=== PATIENT | male | born 1935 | race Caucasian/White ===

== ENCOUNTER 2016-11-23 07:49 | Day surgery (SDC) | payer OTHER ==
--- NOTE | ~2016-11-23 | EGD ---
EGD REPORT [facility] [address] 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 - A History and Physical has been performed. Patient meds and allergies have been reviewed. The risks and benefits of the procedure and the sedation options and risks were discussed with the patient. All questions were answered and informed consent was obtained. Patient identification and proposed procedure were verified prior to the procedure by the physician and the nurse in the procedure room. Mental Status Examination: alert and oriented. Respiratory Examination: expiratory wheezes. CV Examination: normal and RRR, no murmurs, no S3 or S4. ASA Grade Assessment: IV - A patient with severe systemic disease that is a constant threat to life. After reviewing the risks and benefits, the patient was deemed in satisfactory condition to undergo the procedure. The anesthesia plan was to use general anesthesia. Immediately prior to administration of medications, the patient was re-assessed for adequacy to receive sedatives. The heart rate, respiratory rate, oxygen saturations, blood pressure, adequacy of pulmonary ventilation, and response to care were monitored throughout the procedure. The physical status of the patient was re-assessed after the procedure. After obtaining informed consent, the Bronchoscope was introduced through the mouth, via the endotracheal tube (the patient was intubated for the procedure) and advanced to the tracheobronchial tree. the BF [id number] was introduced through the mouth, via the endotracheal tube (the patient was intubated for the procedure) and advanced to the tracheobronchial tree. EGD REPORT [address] [address] NAME: ROBER MCCONNELL : [birth year] STATUS : REG [facility] PAT#: [id number] AGE: 81 ADM/REG DATE : 11/23/16 MR#: [id number] REPORT SERV DATE: 11/23/16 DICTATED BY: BENITO GOODE DATE: 11/23/16 REPORT STATUS : Draft TRANSCRIBED BY: [employer] DATE: 11/23/16 The procedure was accomplished without difficulty. The patient tolerated the procedure well. Findings: The endotracheal tube is in good position. The visualized portion of the trachea is of normal caliber. The jose alberto is sharp. The tracheobronchial tree was examined to at least the first subsegmental level. A large friable irregular polypoid tumor is emanating out of the RUL with complete occlusion of the CHICO. Brushings were obtained in the right mainstem bronchus of the lung and sent for routine cytology. One sample was obtained. Endobronchial biopsies were performed in the right mainstem bronchus of the lung using a forceps and sent for histopathology examination. Five samples were obtained. Balloon bronchoplasty with a des number four was utilized to identify the margins. No significant benefit was acheived with the des balloon. The FiO2 was lowered to less than 40% and Nd Yap laser therapy (330 mJ, 1.7 Hz) was applied for destruction of tumor (see pictures). The patient was then reintubated with a 12 mm Rigid Dumon bronchoscope in the usual atraumatic fashion and selectively advanced into the proximal right mainstem. Using the barrel of the rigid bronchoscope, CHICO tumor was cored out and sent for histology. An attempt at CHICO stent placement was aborted due to poor fit. The patient was then reintubated and argon plasma coagulation therapy (0.8 L/min, 15 Pack was applied to the remaining tumor for destruction of tumor and hemostasis. Pictures were taken at the close of the case. 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 Using the barrel of the rigid bronchoscope, CHICO tumor was cored out. No stent was placed. Recommendation: - Await test results. - PET scan. - MRI of the head with and without contrast - Medical oncology consult with Dr. Noland - Radiation oncology consult with Dr. Coughlin - Nurse Navigator consult with Cecelia Tong - Full PFTs - Requested Keytruda PDL1 testin - Biodesix Liquid biopsy - Reflex testing for adenocarcinoma if indicated. Attending Participation: I personally performed the entire procedure. KERWIN GOODE MD 11/23/2016 1:00 PM This report has been signed electronically. EGD REPORT [facility] [address] [address] NAME: ROBER MCCONNELL : 33 STATUS : REG [facility]#: [id number] AGE: 81 ADM/REG DATE : 11/23/16 MR#: [id number] REPORT SERV DATE: 11/23/16 DICTATED BY: BENITO GOODE DATE: 11/23/16 REPORT STATUS : Draft TRANSCRIBED BY: [employer] DATE: 11/23/16 Number of Addenda: 0 Note Initiated On: 11/23/2016 8:15 AM [address] [facility] [place] [address]
--- NOTE | ~2016-11-23 | EGD ---
EGD REPORT [facility] [address] 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 - A History and Physical has been performed. Patient meds and allergies have been reviewed. The risks and benefits of the procedure and the sedation options and risks were discussed with the patient. All questions were answered and informed consent was obtained. Patient identification and proposed procedure were verified prior to the procedure by the physician and the nurse in the procedure room. Mental Status Examination: alert and oriented. Respiratory Examination: expiratory wheezes. CV Examination: normal and RRR, no murmurs, no S3 or S4. ASA Grade Assessment: IV - A patient with severe systemic disease that is a constant threat to life. After reviewing the risks and benefits, the patient was deemed in satisfactory condition to undergo the procedure. The anesthesia plan was to use general anesthesia. Immediately prior to administration of medications, the patient was re-assessed for adequacy to receive sedatives. The heart rate, respiratory rate, oxygen saturations, blood pressure, adequacy of pulmonary ventilation, and response to care were monitored throughout the procedure. The physical status of the patient was re-assessed after the procedure. After obtaining informed consent, the Bronchoscope was introduced through the mouth, via the endotracheal tube (the patient was intubated for the procedure) and advanced to the tracheobronchial tree. the BF [id number] was introduced through the mouth, via the endotracheal tube (the patient was intubated for the procedure) and advanced to the tracheobronchial tree. EGD REPORT [address] [address] NAME: ROBER MCCONNELL : [birth year] STATUS : [facility] PAT#: [id number] AGE: 81 ADM/REG DATE : 11/23/16 MR#: [id number] REPORT SERV DATE: 12/22/16 DICTATED BY: BENITO GOODE DATE: 12/22/16 REPORT STATUS : Draft TRANSCRIBED BY: [employer] DATE: 12/22/16 The procedure was accomplished without difficulty. The patient tolerated the procedure well. Findings: The endotracheal tube is in good position. The visualized portion of the trachea is of normal caliber. The jose alberto is sharp. The tracheobronchial tree was examined to at least the first subsegmental level. A large friable irregular polypoid tumor is emanating out of the RUL with complete occlusion of the CHICO. Brushings were obtained in the right mainstem bronchus of the lung and sent for routine cytology. One sample was obtained. Endobronchial biopsies were performed in the right mainstem bronchus of the lung using a forceps and sent for histopathology examination. Five samples were obtained. Balloon bronchoplasty with a des number four was utilized to identify the margins. No significant benefit was acheived with the des balloon. The FiO2 was lowered to less than 40% and Nd Yap laser therapy (330 mJ, 1.7 Hz) was applied for destruction of tumor (see pictures). The patient was then reintubated with a 12 mm Rigid Dumon bronchoscope in the usual atraumatic fashion and selectively advanced into the proximal right mainstem. Using the barrel of the rigid bronchoscope, CHICO tumor was cored out and sent for histology. An attempt at CHICO stent placement was aborted due to poor fit. The patient was then reintubated and argon plasma coagulation therapy (0.8 L/min, 15 Pack was applied to the remaining tumor for destruction of tumor and hemostasis. Pictures were taken at the close of the case. 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 Using the barrel of the rigid bronchoscope, CHICO tumor was cored out. No stent was placed. Recommendation: - Await test results. - PET scan. - MRI of the head with and without contrast - Medical oncology consult with Dr. Noland - Radiation oncology consult with Dr. Coughlin - Nurse Navigator consult with Cecelia Tong - Full PFTs - Requested Keytruda PDL1 testin - Biodesix Liquid biopsy - Reflex testing for adenocarcinoma if indicated. Attending Participation: I personally performed the entire procedure. KERWIN GOODE MD 11/23/2016 1:00 PM This report has been signed electronically. EGD REPORT [address] [address] NAME: ROBER MCCONNELL : 33 STATUS : [facility]#: [id number] AGE: 81 ADM/REG DATE : 11/23/16 MR#: [id number] REPORT SERV DATE: 12/22/16 DICTATED BY: BENITO GOODE DATE: 12/22/16 REPORT STATUS : Draft TRANSCRIBED BY: [employer] DATE: 12/22/16 Number of Addenda: 1 Note Initiated On: 11/23/2016 8:15 AM Addendum Number: 1 Addendum Date: 12/22/2016 5:26 PM EBUS TBNA of lymph node level 11L for cytology EBUS TBNA of lymph node level 7 for cytology EBUS TBNA of lymph node level 4R for cytology KERWIN GOODE MD 12/22/2016 5:26 PM This report has been signed electronically. [address] [place] [address]
--- NOTE | ~2016-11-23 | CN ---
Consultation Report [facility] [address] [place]. [address] NAME: ROBER MCCONNELL : 33 STATUS : REG [facility]#: [id number] AGE: 81 ADM/REG DATE : 11/23/16 MR#: [id number] REPORT SERV DATE: 11/23/16 DICTATED BY: TONA GOODE DATE: 11/23/16 REPORT STATUS : Draft TRANSCRIBED BY: [employer] DATE: 11/23/16 CONSULTATION DATE OF CONSULTATION: Dear Dr. Maggie Headley and Dr. Salas: Thank you for requesting my opinion regarding evaluation and management of Mr. Rober Mcconnell' right-sided lung mass with bulky mediastinal adenopathy and right mainstem subtotal obstruction. Mr. Mcconnell is a pleasant 81-year-old gentleman with a significant past medical history of remote tobacco abuse, prostate cancer, status post XRT, who presents to [facility] for formal evaluation of worsening shortness of breath and abnormal CT scan of the chest. Mr. Mcconnell' history is somewhat limited by his dementia, he is slightly forgetful. He does state that he has been increasingly short of breath, but has no significant limitation in his activity level, and he continues to easily walk up a flight of stairs, or walk long distances without major issues. He does have typical exertional dyspnea well localized to the chest, nonradiating with no significant alleviating or exacerbating factors. His main complaint is a refractory persistent cough. He has taken NyQuil without any success, and his reports that he has even started to drink large volumes of NyQuil. The patient underwent a CT scan of the chest on 11/17/2016, that demonstrated a right upper lobe nodule, with extensive mediastinal lymphadenopathy including bilateral scalene adenopathy, but not reported in the dictation of the note is a large right upper lobe mass that is near complete obstruction of the right mainstem. REVIEW OF SYSTEMS: The patient firmly denies any fevers, chills, night sweats, chest pain, palpitations, nausea, vomiting, diarrhea, or constipation. He firmly denies any hemoptysis. He does report a 10 pound unintentional weight loss. PAST MEDICAL HISTORY: 1. Depression and anxiety. 2. Remote tobacco abuse. 3. History of prostate cancer, status post XRT. PAST SURGICAL HISTORY: As above. ALLERGIES: BEANS, COCOA, GLUTEN, AND SOY BEANS. HOME MEDICATIONS: Calcium carbonate, Lexapro, guaifenesin, and Exelon tablets. SOCIAL HISTORY: The patient smoked up until 27 years ago. He denies any current tobacco, alcohol, or illicit drug abuse. 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 He has even restored a 3 [employer] tractor. Consultation Report [address] [place]. [address] NAME: ROBER MCCONNELL : 33 STATUS : [place] [facility] PAT#: [id number] AGE: 81 ADM/REG DATE : 11/23/16 MR#: [id number] REPORT SERV DATE: 11/23/16 DICTATED BY: TONA GOODE DATE: 11/23/16 REPORT STATUS : Draft TRANSCRIBED BY: JIM DATE: 11/23/16 FAMILY HISTORY: Diabetes, skin cancer, gallbladder disease, myocardial infarction, dementia, and appendicitis. PHYSICAL EXAMINATION: VITAL SIGNS: Weighs 162 pounds, 5 feet 9 inches, blood pressure 146/62, pulse of 62, respiratory rate of 22, O2 saturation 91% on room air. Afebrile, temperature 97.8. GENERAL: In no acute distress. Able to communicate in full paragraphs at a time. HEENT: Normocephalic and atraumatic. Pupils are equal, round, and reactive to light and accommodation. Posterior oropharynx is clear. NECK: No JVD. No LAD. Trachea midline. CARDIOVASCULAR: Regular rate and rhythm. S1 and S2 present. LUNGS: Right-sided wheezes. ABDOMEN: Nontender, nondistended, and soft. Positive bowel sounds. EXTREMITIES: No clubbing, cyanosis, or edema. SKIN: No new rashes, lesions, or ulcers. PSYCHIATRIC: Alert and oriented x3. Appropriate mood and affect. Appropriate insight and judgment. Hard of hearing. Pleasantly forgetful. NEUROLOGIC: 5/5 strength in upper and lower extremities. Cranial nerves II through XII intact. Gait not tested. DTRs not performed. LABORATORY DATA: White count of 8.6, hemoglobin of 13, platelet count of 483, no abnormal differential noted, PT/INR is 1.[address] scan of the chest on 11/17/2016, demonstrates a 2.6 cm irregularly border low-density nodule in the right mid lung zone in the central right lung, with associated large volume of bulky right hilar adenopathy, and central mediastinal lymphadenopathy, including an enlarged prevascular level 6 node, and bilateral scalene adenopathy. The patient also has subtotal obstruction of the right mainstem with a polypoid extension of the tumor emanating from the right upper lobe, it is difficult to assess based on CT scan, if there is endoluminal invasion of the wall in the right mainstem. This CT scan was personally reviewed by me and amended in terms of the dictation as above. ASSESSMENT AND PLAN: Mr. Rober Mcconnell is an extremely pleasant 81-year-old gentleman, with a remote 25 pack year smoking history, who presents to [facility] with a several weeks to months of worsening dyspnea on exertion, unintentional weight loss of 10 pounds, and refractory cough. CT scan of the chest performed on 11/17/2016, confirmed a 2.6 irregularly margin right upper lobe lung nodule with associated bulky local regional adenopathy, and a right upper lobe polypoid like tumor extension with near subtotal occlusion of the right mainstem. The patient also has significant narrowing of the right- sided pulmonary arterial structures. The clinical and radiographic presentation is most consistent with primary bronchogenic cancer until proven otherwise. Other potential etiologies include lymphoma or metastatic disease. At this point, Mr. Rober Mcconnell needs an appropriate diagnostic and therapeutic intervention. Consultation Report [address] [address] NAME: ROBER MCCONNELL : 33 STATUS : [place] [facility] [place] [place]#: [id number] AGE: 81 ADM/REG DATE : 11/23/16 MR#: [id number] REPORT SERV DATE: 11/23/16 DICTATED BY: TONA GOODE DATE: 11/23/16 REPORT STATUS : Draft TRANSCRIBED BY: [employer]L DATE: 11/23/16 We discussed in detail potential options including thoracic surgical biopsy, CT-guided needle biopsy or bronchoscopic biopsy. After careful discussion of the risks, benefits, and alternatives to each of these procedures, we agreed to proceed forward with flexible rigid and EBUS bronchoscopy to obtain tissue on for diagnosis and potential therapeutic effect with debulking of endoluminal tumor plus/minus airway stent placement. The patient is aware that the procedure is associated with potential life-threatening risks, risks including injury to the mouth, lips, teeth, gums, posterior oropharynx, vocal cords, airway wall, perforation, airway fire, life-threatening bleeding, pneumothorax and even . The patient is aware that stents if deployed may migrate, fracture, or potentially become hazard themselves. He is aware of the importance of compliance with nebulization therapy including albuterol and Mucomyst two to three times a day. Summary of my recommendations are as follows: 1. Proceed with flexible, rigid, and EBUS bronchoscopy with plus/minus airway stent placement. 2. MRI of the brain with and without contrast. 3. PET-CT scan to complete staging. 4. Medical and Radiation Oncology consult to follow. Given the bulky nature of the disease process and involvement of the right mainstem, prick, and jose alberto, it is unlikely that he would tolerate. He had a complete R0 thoracic surgical resection successfully. However, the patient may be amenable to neoadjuvant chemotherapy with thoracic and surgical intervention to follow. Thank you for allowing me to participate in Mr. Rober Mcconnell' care. KB/MODL Tona Goode M.D. / [id number] CC: Kecia Douglas M.D.
[~2016-11-23 07:49] MED LIST: ALEVE220 MG PO; EXELON1.5 PO; LEXAPRO5 MG PO; M-CLEAR WC PO; PEPTO-BISMOL TA1 TAB PO; TUMSROLL PO
[2016-11-23 08:11] LABS: BASOPHILS 0.3 %; BASOPHILS ABSOLUTE 0.03 10/3/uL (0.0-0.16); EOSINOPHILS 3.8 %; EOSINOPHILS ABSOLUTE 0.33 10/3/uL (0.0-0.53); HEMATOCRIT 39.8 % (40.0-51.0); IMMATURE GRANULOCYTES 0.3 %; IMMATURE GRANULOCYTES ABSOLUTE 0.03 10/3/uL (0.0-0.11); LYMPHOCYTES 21.7 %; LYMPHOCYTES ABSOLUTE 1.87 10/3/uL (0.67-4.30); MANUAL DIFF NO %; MEAN CORPUS HGB CONC 32.7 g/dL (32.0-36.0); MEAN CORPUSCULAR HEMOGLOB 30.2 pg (26.0-34.0); MEAN CORPUSCULAR VOLUME 92.3 fL (80-100); MEAN PLATELET VOLUME 10.7 fL (9.2-13.0); MONOCYTES 7.9 %; MONOCYTES ABSOLUTE 0.68 10/3/uL (0.21-1.20); NEUTROPHILS ABSOLUTE 5.67 10/3/uL (2.02-8.40); PLATELET COUNT 483 10/3/uL (150-400); RBC DISTRIBUTION WIDTH 12.8 % (12.0-16.0); RED CELL COUNT 4.31 10/6/uL (4.7-6.1); WHITE BLOOD CELLS 8.6 10/3/uL (4.5-10.5)
[2016-11-23 08:19] LABS: INTERNATIONAL NORMAL RATI 1.2 UNITS (-); PARTIAL THROMBO TIME 36.3 SEC (22.5-37.2); PROTIME (NOT ORD) 14.8 SEC (12.0-14.5)
[2017-03-19] MEDS ORDERED: CENTRUM PO (17:53)
[2017-03-19] MEDS ORDERED: ACET500CAP PO (17:54)
[2017-03-19] MEDS ORDERED: BACDS PO (17:57)
[2017-03-19] MEDS ORDERED: LEXAPRO5 MG PO (17:58)
[2017-03-19] MEDS ORDERED: EXELON1.5 PO (18:00)
[2017-03-19] MEDS ORDERED: P10 PO (18:00)
== END 2016-11-23 23:59 | disposition home or self-care (01) ==
LOC: DMU 07:49
PROVIDERS: Internal Medicine
PROC: 0BB38ZX Excision of Right Main Bronchus, Via Natural or Artificial Opening Endoscopic, Diagnostic (ICD-10-PCS; principal; 2016-11-23 09:30)
PROC: 0BB38ZX Excision of Right Main Bronchus, Via Natural or Artificial Opening Endoscopic, Diagnostic (ICD-10-PCS; 2016-11-23 09:30)
PROC: 0B7 Respiratory System, Dilation (ICD-10-PCS; 2016-11-23 09:30)
PROC: 0BQ Respiratory System, Repair (ICD-10-PCS; 2016-11-23 09:30)
PROC: 0B5 Respiratory System, Destruction (ICD-10-PCS; 2016-11-23 09:30)
DX: C34.01 Malignant neoplasm of right main bronchus (principal); Z87.891 Personal history of nicotine dependence; Z85.46 Personal history of malignant neoplasm of prostate; F32.9 Major depressive disorder, single episode, unspecified; F41.9 Anxiety disorder, unspecified
CPT/HCPCS: 71010; 85025; 85610; 85730; 88112; 88172; 88173; 88305; 88333; 88341; 88342; 93005; A9270-GY; C1725; C1726; C1757; J2250; J2405; J2710; J3010